=== PATIENT | female | born 1965 | race Caucasian/White ===

== ENCOUNTER → 2016-04-04 | Outpatient (REF) | payer BC ==
[2016-04-04 11:15] LABS: BASO % 0.4 % (0.0-1.0); EOS # 0.1 K/mm3 (0.0-0.50); EOS % 1.4 % (0.0-3.0); LARGE UNSTAINED CELL # 0.1 K/mm3 (0.0-0.4); LARGE UNSTAINED CELL % 1.7 % (0.0-4.0); LYMPH # 1.6 K/mm3 (1.5-4.5); LYMPH % 27.6 % (24.0-44.0); MEAN CORPUSCULAR HEMOGLOBIN 32.5 pg (27.0-33.0); MEAN CORPUSCULAR VOLUME 92.9 fl (80.0-96.0); MONO # 0.3 K/mm3 (0.0-0.8); MONO % 5.1 % (0.0-5.0); NEUTROPHILS # 3.6 K/mm3 (1.8-7.7); NEUTROPHILS % 63.9 % (36.0-66.0); PLATELET COUNT, AUTOMATED 271 k/mm3 (150-450); RED CELL DISTRIBUTION WIDTH 12.3 % (11.5-14.5); WHITE BLOOD COUNT 5.7 K/mm3 (4.0-10.0)
[2016-04-04 11:27] LABS: ALBUMIN/GLOBULIN RATIO 1.29 (1.00-1.93); ALKALINE PHOSPHATASE 113 U/L (45-117); ALT/SGPT 28 U/L (12-78); ANION GAP 7 MEQ/L (8-16); AST/SGOT 13 U/L (15-37); BILIRUBIN,TOTAL 0.5 MG/DL (0.2-1.0); BLOOD UREA NITROGEN 14 MG/DL (7-18); CALCIUM LEVEL 9.4 MG/DL (8.5-10.1); CARBON DIOXIDE LEVEL 27 MEQ/L (21-32); CHLORIDE LEVEL 109 MEQ/L (98-107); CREATININE FOR GFR 0.78 MG/DL (0.55-1.02); GLOMERULAR FILTRATION RATE > 60.0 (>51); GLUCOSE, FASTING 96 MG/DL (70-105); POTASSIUM SERUM 4.1 MEQ/L (3.5-5.1); SODIUM LEVEL 143 MEQ/L (136-145); TOTAL PROTEIN 7.1 GM/DL (6.4-8.2)
[2016-04-04 12:40] LABS: ERYTHROCYTE SEDIMENTATION RATE 7 mm/hr (0-30)
[2016-04-06 00:07] LABS: Lyme Disease IgG/IgM Antibodie <0.91 ISR (0.00-0.90); Lyme Disease IgM Ab Quantitati <0.80 index (0.00-0.79)
== END ==
LOC: M SFHCCLAY 08:33
PROVIDERS: ATTEND Family Medicine
DX: Z20.9 Contact with and (suspected) exposure to unspecified communicable disease (principal); W57.XXXA Bitten or stung by nonvenomous insect and other nonvenomous arthropods, initial encounter; M25.50 Pain in unspecified joint; Y92.89 Other specified places as the place of occurrence of the external cause

== ENCOUNTER → 2018-03-03 | Outpatient (REF) | payer BC ==
[2018-03-06 00:06] LABS: Lyme Disease IgG/IgM Antibodie <0.91 ISR (0.00-0.90); Lyme Disease IgM Ab Quantitati <0.80 index (0.00-0.79)
[2018-03-07 00:07] LABS: C6 BORRELIA BURGDORFERI (LYME) <0.91 index (0.00-0.90)
== END ==
LOC: M SFHCCLAY 06:52
DX: Z20.9 Contact with and (suspected) exposure to unspecified communicable disease (principal)
CPT/HCPCS: 86618

== ENCOUNTER → 2018-03-27 | Outpatient (REF) | payer BC | LOC: M SFHCCLAY 12:04 | PROVIDERS: ATTEND Nurse Practitioner Family | DX: N76.1 Subacute and chronic vaginitis (principal) | CPT/HCPCS: 87070; G0123 ==

== ENCOUNTER → 2019-05-28 | Outpatient (REF) | payer BC ==
[2019-05-28 13:02] LABS: BASO % 0.5 % (0.0-1.0); EOS # 0.1 10^3/uL (0.0-0.5); EOS % 1.2 % (0.0-3.0); HEMATOCRIT 44.9 % (36.0-47.0); LYMPH # 1.9 10^3/uL (1.5-5.0); LYMPH % 32.1 % (24.0-44.0); MEAN CORPUSCULAR HEMOGLOBIN 31.4 pg (27.0-33.0); MEAN CORPUSCULAR HGB CONC 33.4 g/dl (32.0-36.5); MEAN CORPUSCULAR VOLUME 94.1 fl (80.0-96.0); MONO # 0.4 10^3/uL (0.0-0.8); MONO % 7.3 % (0.0-5.0); NEUTROPHILS # 3.4 10^3/uL (1.5-8.5); NEUTROPHILS % 58.7 % (36.0-66.0); PLATELET COUNT, AUTOMATED 255 10^3/uL (150-450); RED BLOOD COUNT 4.77 10^6/uL (4.00-5.40); WHITE BLOOD COUNT 5.8 10^3/uL (4.0-10.0)
[2019-05-28 13:04] LABS: ALBUMIN 4.1 GM/DL (3.2-5.2); ALT/SGPT 34 U/L (12-78); BILIRUBIN,TOTAL 0.8 MG/DL (0.2-1.0); BLOOD UREA NITROGEN 11 MG/DL (7-18); C REACTIVE PROTEIN QUANTITATIV < 0.30 MG/DL (0.00-0.30); CALCIUM LEVEL 9.5 MG/DL (8.5-10.1); CARBON DIOXIDE LEVEL 28 MEQ/L (21-32); CHLORIDE LEVEL 106 MEQ/L (98-107); CREATININE FOR GFR 0.81 MG/DL (0.55-1.30); GLOMERULAR FILTRATION RATE > 60.0 (>51); GLUCOSE, FASTING 88 MG/DL (70-100); SODIUM LEVEL 140 MEQ/L (136-145); TOTAL PROTEIN 7.1 GM/DL (6.4-8.2)
[2019-05-28 13:45] LABS: ERYTHROCYTE SEDIMENTATION RATE 5 mm/hr (0-30)
[2019-06-03 00:07] LABS: CYCLIC CITRULLINATED PEPTIDE 7 units (0-19); HLA-B27 Negative (.)
== END ==
LOC: M SFHCRHEU 11:12
PROVIDERS: ATTEND Internal Medicine
DX: M25.50 Pain in unspecified joint (principal)

== ENCOUNTER → 2019-06-04 | Outpatient (REF) | payer BC ==
[2019-06-04 16:50] LABS: CHOLESTEROL RISK RATIO 4.454 (<5)
== END ==
LOC: M SFHCCLAY 13:27
PROVIDERS: ATTEND Internal Medicine
DX: E78.5 Hyperlipidemia, unspecified (principal)

== ENCOUNTER → 2019-06-04 | Outpatient (CLI) | payer BC ==
--- NOTE | 2019-06-04 15:16 | REP ---
HISTORY: Back pain. COMPARISON: None. FINDINGS: Three views of the sacroiliac joints show them to be non-fused. There is no lysis or sclerosis of either the sacral or iliac side of either SI joints. There is no evidence of whiskering. There is no prominent osteophytosis. IMPRESSION: SI joints within normal limits. Electronically Signed by Darvin Coe DO 06/04/2019 03:44 P
--- NOTE | 2019-06-04 15:19 | REP ---
REASON FOR EXAM: Neck pain. No priors. No trauma whatsoever. There is advanced disc space narrowing seen at C5-6 where anterior and posterior osteophytic ridging is the heaviest. Flexion and extension is not limited radiographically. Vertebral body height and alignment is within normal limits. The intervertebral foramina appear ample bilaterally. The facet joints appear to be well aligned bilaterally. The dens cannot be effectively evaluated secondary to the superimposition of osseous structures and/or dentition on all views. Although this plain radiographic evaluation of the cervical spine shows no evidence of a fracture, it should be remembered that CT is much more sensitive than plain radiography of the C-spine in detecting fractures. If this examination was ordered to rule out a fracture then CT of the cervical spine is recommended. IMPRESSION: Chronic changes, as described above. Electronically Signed by Darvin Coe DO 06/04/2019 03:44 P
--- NOTE | 2019-06-04 15:21 | REP ---
REASON: Back pain. PRIORS: None. There is mild anterior lipping and mild to moderate posterior disc space narrowing at every level. Vertebral body height and alignment is within normal limits. Mild degenerative facet joint changes are suspected bilaterally at every level, but particularly at L4-5 and L5-S1. The pedicles are intact bilaterally. IMPRESSION: Chronic changes, as described above. Electronically Signed by Darvin Coe DO 06/04/2019 03:44 P
--- NOTE | 2019-06-04 15:24 | REP ---
HISTORY: Polyarthralgia bilateral hands. LEFT HAND: There is asymmetric intradigital joint space narrowing, particularly effecting the proximal interphalangeal joint and distal interphalangeal joint of the third digit. There is mild periarticular osteopenia. Small marginal osteophytes are seen involving all intradigital joints. There is no evidence of an acute fracture. RIGHT HAND: There is diffuse asymmetric intradigital joint space narrowing with small marginal osteophytes throughout. There is periarticular osteopenia. There is no acute fracture. IMPRESSION: Bilateral hand chronic changes as described above. Electronically Signed by Darvin Coe DO 06/04/2019 03:45 P
== END ==
LOC: M CLY 13:52
PROVIDERS: ATTEND Internal Medicine
DX: M54.2 Cervicalgia (principal); M25.50 Pain in unspecified joint; M85.841 Other specified disorders of bone density and structure, right hand

== ENCOUNTER → 2021-03-13 | Outpatient (REF) | payer BC, OTHER ==
[2021-03-13 11:30] LABS: BASO # 0.1 10^3/uL (0.0-0.2); BASO % 0.8 % (0.0-1.0); EOS # 0.1 10^3/uL (0.0-0.5); EOS % 1.5 % (0.0-3.0); HEMATOCRIT 45.1 % (36.0-47.0); LYMPH # 1.8 10^3/uL (1.5-5.0); LYMPH % 29.7 % (24.0-44.0); MEAN CORPUSCULAR HEMOGLOBIN 31.3 pg (27.0-33.0); MEAN CORPUSCULAR HGB CONC 33.3 g/dl (32.0-36.5); MEAN CORPUSCULAR VOLUME 94.2 fl (80.0-96.0); MONO # 0.4 10^3/uL (0.0-0.8); MONO % 7.3 % (2.0-8.0); NEUTROPHILS # 3.6 10^3/uL (1.5-8.5); NEUTROPHILS % 60.2 % (36.0-66.0); PLATELET COUNT, AUTOMATED 274 10^3/uL (150-450); RED BLOOD COUNT 4.79 10^6/uL (4.00-5.40)
[2021-03-13 12:03] LABS: ALT/SGPT 38 U/L (12-78); BILIRUBIN,TOTAL 0.4 MG/DL (0.2-1.0); BLOOD UREA NITROGEN 11 MG/DL (7-18); CALCIUM LEVEL 9.3 MG/DL (8.5-10.1); CARBON DIOXIDE LEVEL 29 MEQ/L (21-32); CHLORIDE LEVEL 107 MEQ/L (98-107); CHOLESTEROL LEVEL 188 MG/DL (<200); CHOLESTEROL RISK RATIO 4.086 (<5); CREATININE FOR GFR 0.74 MG/DL (0.55-1.30); FREE T4 1.06 NG/DL (0.76-1.46); GLOMERULAR FILTRATION RATE > 60.0 (>51); GLUCOSE, FASTING 98 MG/DL (70-100); HDL CHOLESTEROL 46 MG/DL (>40); LDL CHOLESTEROL 107 MG/DL (<100); NON-HDL-C 142 MG/DL; POTASSIUM SERUM 4.3 MEQ/L (3.5-5.1); SODIUM LEVEL 141 MEQ/L (136-145); TOTAL PROTEIN 7.1 GM/DL (6.4-8.2); TRIGLYCERIDES LEVEL 174 MG/DL (<150)
[2021-03-13 12:05] LABS: TOTAL 25(OH) VITAMIN D 34.2 NG/ML (30.0-100.0)
[2021-03-13 12:08] LABS: HEMOGLOBIN A1c 5.2 %
== END ==
LOC: M SFHCCLAY 09:01
PROVIDERS: ATTEND Nurse Practitioner Family
DX: E78.2 Mixed hyperlipidemia (principal); E55.9 Vitamin D deficiency, unspecified; M85.89 Other specified disorders of bone density and structure, multiple sites; Z12.31 Encounter for screening mammogram for malignant neoplasm of breast; Z12.11 Encounter for screening for malignant neoplasm of colon; Z13.1 Encounter for screening for diabetes mellitus

== ENCOUNTER → 2022-04-23 | Outpatient (REF) | payer OTHER, BC | LOC: M SFHCCLAY 15:36 | PROVIDERS: ATTEND Nurse Practitioner Family | DX: R05.1 Acute cough (principal) ==

== ENCOUNTER → 2023-06-03 | Outpatient (REF) | payer OTHER | LOC: M SFHCCLAY 09:36 | PROVIDERS: ATTEND Nurse Practitioner Family | DX: Z12.4 Encounter for screening for malignant neoplasm of cervix (principal); Z53.9 Procedure and treatment not carried out, unspecified reason ==

== ENCOUNTER → 2023-06-03 | Outpatient (REF) | payer OTHER | LOC: M LAB REF 09:50 | PROVIDERS: ATTEND Nurse Practitioner Family | DX: Z01.419 Encounter for gynecological examination (general) (routine) without abnormal findings (principal) ==

== ENCOUNTER → 2023-09-30 | Outpatient (CLI) | payer OTHER | LOC: M CLY 08:28 | PROVIDERS: ATTEND Nurse Practitioner Family | DX: M79.641 Pain in right hand (principal); M79.642 Pain in left hand ==

== ENCOUNTER → 2024-02-06 | Outpatient (CLI) | payer OTHER ==
[~2024-02-06] MED LIST: ACET650T61 PO; MELO7.5T35 PO
== END ==
LOC: M EKG 10:03
PROVIDERS: ATTEND Anesthesiology
DX: Z01.818 Encounter for other preprocedural examination (principal); R00.1 Bradycardia, unspecified; R94.31 Abnormal electrocardiogram [ECG] [EKG]

== ENCOUNTER 2024-02-12 10:46 | Day surgery (SDC) | payer OTHER ==
[~2024-02-12] VITALS: Ht 162.6 cm; Wt 73.9 kg
[2024-02-12 11:16] LABS: HEMATOCRIT 44.4 % (36.0-47.0); HEMOGLOBIN 15.1 g/dl (12.0-15.5); MEAN CORPUSCULAR HEMOGLOBIN 31.5 pg (27.0-33.0); MEAN CORPUSCULAR VOLUME 92.5 fl (80.0-96.0); PLATELET COUNT, AUTOMATED 285 10^3/uL (150-450); WHITE BLOOD COUNT 6.6 10^3/uL (4.0-10.0)
[2024-02-12] MEDS ORDERED: MIDAZOLAM INJ 2MG/2ML VIAL As Ordered ONE (11:53)
[2024-02-12] MEDS ORDERED: fentaNYL 100 MCG/2 ML INJECTION As Ordered ONE (11:53)
[2024-02-12] MEDS ORDERED: ONDANSETRON 4MG 2ML VIAL As Ordered ONE (12:03)
[2024-02-12] MEDS ORDERED: propofoL 200 MG/20 ML VIAL As Ordered ONE (12:03)
[2024-02-12] MEDS ORDERED: KETOROLAC 60MG 2ML VIAL As Ordered ONE (12:03)
[2024-02-12] MEDS ORDERED: LIDOCAINE 2% 100MG/5ML SDV (FOR ANES.) As Ordered ONE (12:03)
[2024-02-12] MEDS ORDERED: IBUP-1022 PO (12:04)
[2024-02-12] MEDS ORDERED: COLA100C5 PO (12:04)
[2024-02-12] MEDS: ceFAZolin SOD 2 GM in IV 1 EA IV ONE (12:19)
[2024-02-12] MEDS ORDERED: ACETAMINOPHEN 1000MG/100ML IV BAG As Ordered ONE (12:26)
[2024-02-12] MEDS: VASOPRESSIN INJ 20UNITS/ML 1ML VIAL As Ordered ONE (13:08)
[2024-02-12] MEDS ORDERED: fentaNYL 100 MCG/2 ML INJECTION IV PRN (13:15)
[2024-02-12] MEDS ORDERED: ONDANSETRON 4MG 2ML VIAL IV PRN (13:15)
[2024-02-12] MEDS: oxyCODONE 5MG TAB PO PRN (13:54)
[2024-02-12 16:07] VITALS: BP 100/58; TEMP 96.8; O2SAT 96
== END 2024-02-12 16:50 | disposition home or self-care (01) ==
LOC: M SDC 10:46
PROVIDERS: ATTEND Specialist
DX: N81.6 Rectocele (principal); K21.9 Gastro-esophageal reflux disease without esophagitis; Z79.899 Other long term (current) drug therapy
CPT/HCPCS: 36415; 57250; 85027; 86850; 86900; 86901; 88302; J0131; J0665; J0690; J1100; J1885; J2250; J2405; J3010

== ENCOUNTER → 2024-04-27 | Outpatient (REF) | payer OTHER ==
[~2024-04-27] MED LIST changes: +COLA100C5 PO; +IBUP-1022 PO
[2024-04-27 12:08] LABS: BASO # 0.1 10^3/uL (0.0-0.2); BASO % 0.7 % (0.0-1.0); EOS # 0.1 10^3/uL (0.0-0.5); EOS % 1.2 % (0.0-3.0); HEMATOCRIT 46.7 % (36.0-47.0); HEMOGLOBIN 15.5 g/dl (12.0-15.5); LYMPH % 29.4 % (24.0-44.0); MEAN CORPUSCULAR HEMOGLOBIN 30.9 pg (27.0-33.0); MEAN CORPUSCULAR HGB CONC 33.2 g/dl (32.0-36.5); MEAN CORPUSCULAR VOLUME 93.2 fl (80.0-96.0); MONO # 0.5 10^3/uL (0.0-0.8); MONO % 7.1 % (2.0-8.0); NEUTROPHILS # 4.3 10^3/uL (1.5-8.5); NEUTROPHILS % 61.2 % (36.0-66.0); PLATELET COUNT, AUTOMATED 305 10^3/uL (150-450); RED BLOOD COUNT 5.01 10^6/uL (4.00-5.40); WHITE BLOOD COUNT 6.9 10^3/uL (4.0-10.0)
[2024-04-27 12:37] LABS: ALBUMIN 4.2 G/DL (3.2-5.2); ALKALINE PHOSPHATASE 114 U/L (35-104); ALT/SGPT 36 U/L (7.0-40); AST/SGOT 21 U/L (<34); BILIRUBIN,TOTAL 0.5 MG/DL (0.3-1.2); BLOOD UREA NITROGEN 10 MG/DL (9-23); CALCIUM LEVEL 9.7 MG/DL (8.3-10.6); CARBON DIOXIDE LEVEL 28 MMOL/L (20-31); CHLORIDE LEVEL 108 MMOL/L (98-107); CHOLESTEROL LEVEL 218 MG/DL (<200); CHOLESTEROL RISK RATIO 4.26 (<5); CREATININE FOR GFR 0.76 MG/DL (0.55-1.30); GLOMERULAR FILTRATION RATE > 60.0 (>45); GLUCOSE, FASTING 95 MG/DL (74-106); HDL CHOLESTEROL 51.1 MG/DL (>40); LDL CHOLESTEROL 126.3 MG/DL (<100); NON-HDL-C 166.9 MG/DL; POTASSIUM SERUM 4.3 MMOL/L (3.5-5.1); SODIUM LEVEL 144 MMOL/L (136-145); TOTAL PROTEIN 7.3 G/DL (5.7-8.2); TRIGLYCERIDES LEVEL 203 MG/DL (<150)
[2024-04-27 12:38] LABS: THYROID STIMULATING HORMONE 0.959 uIU/ML (0.55-4.78)
[2024-04-27 12:39] LABS: FREE T4 1.36 NG/DL (0.89-1.76)
[2024-04-27 13:08] LABS: HEMOGLOBIN A1c 5.2 % (4.0-6.0)
== END ==
LOC: M SFHCCLAY 08:52
PROVIDERS: ATTEND Nurse Practitioner Family
DX: Z00.00 Encounter for general adult medical examination without abnormal findings (principal); E78.2 Mixed hyperlipidemia; E55.9 Vitamin D deficiency, unspecified; M85.89 Other specified disorders of bone density and structure, multiple sites; Z13.1 Encounter for screening for diabetes mellitus